=== PATIENT | female | born 1950 | race Caucasian/White ===

== ENCOUNTER → 2020-03-01 | Outpatient (CLI) | payer MEDICARE ==
[~2020-03-01] MED LIST: AMIT10TA PO; ASPI-650 PO; ATOR20TA37 PO; BUTA-218 PO; CELE200C PO; ESOM40CA PO; LEVO75TA5 PO; MONT10TA6 PO; OXYC1TAB18 PO; VENL75TA PO
[2020-03-01 16:42] LABS: BASOPHILS % (AUTO) 1 % (0-1); EOSINOPHILS % (AUTO) 4 % (1-7); LYMPHOCYTES % (AUTO) 25 % (22-44); MEAN CORPUSCULAR HEMOGLOBIN 28.1 pg (27.0-34.8); MEAN CORPUSCULAR HGB CONC 33.5 g/dL (32.4-35.8); MEAN PLATELET VOLUME 7.9 fL (7.4-10.4); MONOCYTES % (AUTO) 7 % (2-9); NEUTROPHILS % (AUTO) 63 % (42-75); PLATELET COUNT 440 x10^3/uL (130-400); RED BLOOD COUNT 4.35 x10^6/uL (3.82-5.3); RED CELL DISTRIBUTION WIDTH 14.1 % (9.6-15.2)
[2020-03-01 16:46] LABS: INTERNATIONAL NORMALIZED RATIO 0.94 (0.93-1.1)
[2020-03-01 16:47] LABS: MICROSCOPIC AUTO
[2020-03-01 16:49] LABS: ANION GAP 6 mmol/L (5-15); CALCIUM 8.7 mg/dL (8.5-10.1); CHLORIDE 111 mmol/L (98-107)
[2020-03-01 16:50] LABS: CREATININE 1.03 mg/dL (0.55-1.02)
[2020-03-01 16:51] LABS: MD NO
== END | disposition home or self-care (01) ==
LOC: STAR 14:44
PROVIDERS: ATTEND Urology
DX: Z01.818 Encounter for other preprocedural examination (principal); N20.0 Calculus of kidney; I45.10 Unspecified right bundle-branch block; Z20.828 Contact with and (suspected) exposure to other viral communicable diseases
CPT/HCPCS: 80048; 81001; 85025; 85610; 87086; 87635; 93005

== ENCOUNTER → 2020-03-05 | Outpatient (CLI) | payer MEDICARE | END | disposition home or self-care (01) | LOC: RAD 11:00 | PROVIDERS: ATTEND Urology | DX: N20.0 Calculus of kidney (principal) | CPT/HCPCS: 74018 ==

== ENCOUNTER → 2020-05-08 | Outpatient (CLI) | payer MEDICARE | END | disposition home or self-care (01) | LOC: CFH 07:29 | PROVIDERS: ATTEND Internal Medicine Cardiovascular Disease | DX: I08.0 Rheumatic disorders of both mitral and aortic valves (principal); E78.5 Hyperlipidemia, unspecified; I10 Essential (primary) hypertension; E78.00 Pure hypercholesterolemia, unspecified | CPT/HCPCS: 78452; 93017; 93306; A9502 ==

== ENCOUNTER → 2020-06-13 | Outpatient (CLI) | payer MEDICARE ==
[~2020-06-13] MED LIST changes: +ASPI-1026 PO; -ASPI-650 PO; +LOSA25TA25 PO
[2020-06-13 15:09] LABS: MICROSCOPIC AUTO
[2020-06-13 15:39] LABS: BASOPHILS % (AUTO) 1 % (0-1); EOSINOPHILS % (AUTO) 3 % (1-7); LYMPHOCYTES % (AUTO) 25 % (22-44); MEAN CORPUSCULAR HEMOGLOBIN 28.9 pg (27.0-34.8); MEAN CORPUSCULAR HGB CONC 34.6 g/dL (32.4-35.8); MEAN PLATELET VOLUME 7.3 fL (7.4-10.4); MONOCYTES % (AUTO) 9 % (2-9); NEUTROPHILS % (AUTO) 63 % (42-75); PLATELET COUNT 404 x10^3/uL (130-400); RED BLOOD COUNT 4.33 x10^6/uL (3.82-5.3); RED CELL DISTRIBUTION WIDTH 14.1 % (9.6-15.2)
[2020-06-13 15:40] LABS: MD NO
[2020-06-13 15:47] LABS: ANION GAP 7 mmol/L (5-15); CALCIUM 9.3 mg/dL (8.5-10.1); CHLORIDE 112 mmol/L (98-107); CREATININE 1.06 mg/dL (0.55-1.02)
[2020-06-13 16:03] LABS: INTERNATIONAL NORMALIZED RATIO 0.94 (0.93-1.1); PROTHROMBIN TIME 10.1 Seconds (9.6-11.5)
== END | disposition home or self-care (01) ==
LOC: STAR 13:53
PROVIDERS: ATTEND Urology
DX: Z01.818 Encounter for other preprocedural examination (principal); N20.0 Calculus of kidney; I45.10 Unspecified right bundle-branch block; I21.19 ST elevation (STEMI) myocardial infarction involving other coronary artery of inferior wall; Z20.822 Contact with and (suspected) exposure to COVID-19
CPT/HCPCS: 80048; 81001; 85025; 85610; 85730; 87086; 87635; 93005

== ENCOUNTER → 2020-06-13 | Outpatient (CLI) | payer MEDICARE ==
[2020-06-13 15:45] LABS: T4 (THYROXINE) 8.8 mcg/dL (4.8-13.9)
== END | disposition home or self-care (01) ==
LOC: LAB 15:06
PROVIDERS: ATTEND Registered Nurse
DX: E03.9 Hypothyroidism, unspecified (principal); E78.00 Pure hypercholesterolemia, unspecified
CPT/HCPCS: 36415; 84075; 84080; 84436; 84443; 84481

== ENCOUNTER → 2020-06-18 | Outpatient (CLI) | payer MEDICARE | END | disposition home or self-care (01) | LOC: CFH 11:48 | PROVIDERS: ATTEND Urology | DX: N20.0 Calculus of kidney (principal) | CPT/HCPCS: 74018 ==

== ENCOUNTER 2020-06-19 05:31 | Day surgery (SDC) | payer MEDICARE ==
[~2020-06-19] VITALS: Ht 162.6 cm; Wt 70.0 kg
[2020-06-19 06:16] VITALS: BP 137/85
[2020-06-19] MEDS ORDERED: LACTATED RINGERS 1,000 ML IV SCH (06:30)
[2020-06-19] MEDS ORDERED: CHLORHEXIDINE 15 ML UDC MM ONE (06:30)
[2020-06-19] MEDS ORDERED: FENTANYL PF 100 MCG/2ML ONE (07:23)
[2020-06-19] MEDS ORDERED: MIDAZOLAM 1 MG/ML, 2ML ONE (07:23)
[2020-06-19] MEDS ORDERED: ROCURONIUM 10MG/ML,5ML ONE (07:24)
[2020-06-19] MEDS ORDERED: PROPOFOL 10 MG/ML, 20ML ONE (07:25)
[2020-06-19] MEDS ORDERED: hydrALAzine 20 MG/ML, 1ML IV PRN (07:30)
[2020-06-19] MEDS ORDERED: LABETALOL 5MG/ML, 20ML IV PRN (07:30)
[2020-06-19] MEDS ORDERED: OXYcodone 5 MG/5 ML ORAL.SOL UDC PO PRN (07:30)
[2020-06-19] MEDS ORDERED: DEXAMETHASONE 4 MG/ML, 1ML ONE (07:30)
[2020-06-19] MEDS ORDERED: PROMETHAZINE 25 MG/ML, 1ML IVPush PRN (07:30)
[2020-06-19] MEDS ORDERED: ACETAMINOPHEN 325 MG TABLET PO PRN (07:30)
[2020-06-19] MEDS ORDERED: DIAZEPAM 5 MG/ML, 2ML IVPush PRN (07:30)
[2020-06-19] MEDS ORDERED: ONDANSETRON 2MG/ML, 2ML ONE (07:30)
[2020-06-19] MEDS ORDERED: ONDANSETRON 2MG/ML, 2ML IVPush PRN (07:30)
[2020-06-19] MEDS ORDERED: MEPERIDINE/PF 25MG/0.5ML IVPush PRN (07:30)
[2020-06-19] MEDS ORDERED: HYDROmorphone 1 MG/ML, 1ML INJ IVPush PRN (07:30)
[2020-06-19] MEDS ORDERED: DIPHENHYDRAMINE 50 MG/ML, 1ML IVPush PRN (07:30)
[2020-06-19] MEDS ORDERED: FENTANYL PF 100 MCG/2ML IV PRN (07:30)
[2020-06-19] MEDS ORDERED: GLYCOPYRROLATE 0.2MG/1ML, 5ML ONE (07:39)
[2020-06-19] MEDS ORDERED: CEFAZOLIN 1,000 MG ONE ×2 (07:56)
[2020-06-19] MEDS ORDERED: MONTELUKAST 10 MG TABLET PO SCH (09:00)
[2020-06-19] MEDS ORDERED: ASPIRIN 325 MG TABLET EC PO SCH (09:00)
[2020-06-19] MEDS ORDERED: VENLAFAXINE 75MG TABLET PO SCH (09:00)
[2020-06-19] MEDS ORDERED: LEVOTHYROXINE 75 MCG TABLET PO SCH (09:00)
[2020-06-19] MEDS ORDERED: LOSARTAN 25MG TABLET PO SCH (09:00)
[2020-06-19] MEDS ORDERED: OXYcodone/APAP 10/325MG TABLET PO SCH (09:00)
[2020-06-19] MEDS ORDERED: AMITRIPTYLINE 10 MG TABLET PO SCH (21:00)
[2020-06-19] MEDS ORDERED: ATORVASTATIN 20 MG TABLET PO SCH (21:00)
== END 2020-06-19 10:25 | disposition home or self-care (01) ==
LOC: OUT 05:31
PROVIDERS: ATTEND Urology
DX: N20.0 Calculus of kidney (principal); N13.8 Other obstructive and reflux uropathy; N39.0 Urinary tract infection, site not specified; E03.9 Hypothyroidism, unspecified; I27.20 Pulmonary hypertension, unspecified; Z79.890 Hormone replacement therapy; Z79.891 Long term (current) use of opiate analgesic; Z79.899 Other long term (current) drug therapy; Z86.711 Personal history of pulmonary embolism; Z85.038 Personal history of other malignant neoplasm of large intestine; Z87.442 Personal history of urinary calculi; Z88.5 Allergy status to narcotic agent
CPT/HCPCS: 50590; 52353; C1769; J0690; J1100; J2250; J2405; J2704; J3010; J7120

== ENCOUNTER → 2020-08-12 | Outpatient (CLI) | payer MEDICARE | END | disposition home or self-care (01) | LOC: RAD 13:46 | PROVIDERS: ATTEND Urology | DX: N20.0 Calculus of kidney (principal); Z96.643 Presence of artificial hip joint, bilateral | CPT/HCPCS: 74018 ==

== ENCOUNTER → 2020-11-13 | Outpatient (CLI) | payer MEDICARE ==
[~2020-11-13] MED LIST changes: +LACT1CAP20 PO
[2020-11-13 14:31] LABS: MICROSCOPIC AUTO
[2020-11-13 14:32] LABS: CHLORIDE 108 mmol/L (98-107)
[2020-11-13 14:33] LABS: ALBUMIN 3.9 g/dL (3.4-5.0); ANION GAP 5 mmol/L (5-15); BASOPHILS % (AUTO) 0 % (0-1); CALCIUM 9.1 mg/dL (8.5-10.1); EOSINOPHILS % (AUTO) 4 % (1-7); LYMPHOCYTES % (AUTO) 28 % (22-44); MEAN CORPUSCULAR HEMOGLOBIN 28.8 pg (27.0-34.8); MEAN CORPUSCULAR HGB CONC 33.9 g/dL (32.4-35.8); MEAN PLATELET VOLUME 7.7 fL (7.4-10.4); MONOCYTES % (AUTO) 10 % (2-9); NEUTROPHILS % (AUTO) 58 % (42-75); PLATELET COUNT 386 x10^3/uL (130-400); RED BLOOD COUNT 4.32 x10^6/uL (3.82-5.3); RED CELL DISTRIBUTION WIDTH 14.5 % (9.6-15.2)
[2020-11-13 14:37] LABS: ALANINE AMINOTRANSFERASE 30 U/L (12-78); ALKALINE PHOSPHATASE 145 U/L (45-117); BILIRUBIN,TOTAL 0.3 mg/dL (0.2-1.0); TOTAL PROTEIN 7.5 g/dL (6.4-8.2)
[2020-11-13 14:42] LABS: INTERNATIONAL NORMALIZED RATIO 0.96 (0.93-1.1); PROTHROMBIN TIME 10.3 Seconds (9.6-11.5)
== END | disposition home or self-care (01) ==
LOC: STAR 13:04
PROVIDERS: ATTEND Student in an Organized Health Care Education/Training Program
DX: Z01.818 Encounter for other preprocedural examination (principal); N20.0 Calculus of kidney; I45.10 Unspecified right bundle-branch block
CPT/HCPCS: 36415; 80053; 81001; 85025; 85610; 85730; 87086; 93005

== ENCOUNTER 2020-11-20 11:59 | Day surgery (SDC) | payer MEDICARE ==
[~2020-11-20] VITALS: Ht 162.6 cm; Wt 70.6 kg
[2020-11-20 12:34] VITALS: BP 144/86
[2020-11-20] MEDS ORDERED: CHLORHEXIDINE 15 ML UDC PO ONE (13:00)
[2020-11-20] MEDS ORDERED: LACTATED RINGERS 1,000 ML IV SCH (13:00)
[2020-11-20] MEDS ORDERED: OMNIPAQUE 350 MG/ML, 50 ML BOTTLE ONE (14:53)
[2020-11-20] MEDS ORDERED: ACETAMINOPHEN 325 MG TABLET PO PRN (15:00)
[2020-11-20] MEDS ORDERED: LABETALOL 5MG/ML, 20ML IV PRN (15:00)
[2020-11-20] MEDS ORDERED: HYDROmorphone 1 MG/ML, 1ML INJ IVPush PRN (15:00)
[2020-11-20] MEDS ORDERED: FENTANYL PF 100 MCG/2ML IV PRN (15:00)
[2020-11-20] MEDS ORDERED: EPHEDRINE 50 MG/ML, 1ML IVPush PRN (15:00)
[2020-11-20] MEDS ORDERED: ONDANSETRON 2MG/ML, 2ML IVPush PRN (15:00)
[2020-11-20] MEDS ORDERED: PROMETHAZINE 25 MG/ML, 1ML IVPush PRN (15:00)
[2020-11-20] MEDS ORDERED: OXYcodone 5 MG/5 ML ORAL.SOL UDC PO PRN (15:00)
[2020-11-20] MEDS ORDERED: hydrALAzine 20 MG/ML, 1ML IV PRN (15:00)
[2020-11-20] MEDS ORDERED: FENTANYL PF 100 MCG/2ML ONE (15:01)
[2020-11-20] MEDS ORDERED: CEFAZOLIN 1,000 MG ONE (15:04)
[2020-11-20] MEDS ORDERED: PROPOFOL 10 MG/ML, 20ML ONE (15:04)
[2020-11-20] MEDS ORDERED: DEXAMETHASONE 4 MG/ML, 1ML ONE (15:04)
[2020-11-20] MEDS ORDERED: ONDANSETRON 2MG/ML, 2ML ONE (15:04)
[2020-11-20] MEDS ORDERED: KETOROLAC 30 MG/1 ML ONE ×2 (15:12)
== END 2020-11-20 17:30 | disposition home or self-care (01) ==
LOC: OUT 11:59
PROVIDERS: ATTEND Student in an Organized Health Care Education/Training Program
DX: N13.2 Hydronephrosis with renal and ureteral calculous obstruction (principal); I10 Essential (primary) hypertension; E78.5 Hyperlipidemia, unspecified; E03.9 Hypothyroidism, unspecified; G43.909 Migraine, unspecified, not intractable, without status migrainosus; Z79.890 Hormone replacement therapy; Z79.891 Long term (current) use of opiate analgesic; Z79.899 Other long term (current) drug therapy; Z87.440 Personal history of urinary (tract) infections; Z87.442 Personal history of urinary calculi; Z88.8 Allergy status to other drugs, medicaments and biological substances; Z96.643 Presence of artificial hip joint, bilateral
CPT/HCPCS: 52356; 74420; 82360; 88300; C1769; C2617; J0690; J1100; J2405; J2704; J3010; J7120; Q9967; J1885